=== PATIENT | female | born 1965 | race Caucasian/White ===

== ENCOUNTER 2021-03-01 10:52 | Emergency (ER) | payer OTHER ==
--- OUTSIDE RECORDS SUMMARY | 2021-03-01 10:55 | XMS REPORT | Continuity of Care Document ---
:1965 Author Organization [facility] t Address [facility] [address] [place] [address] Care Team Providers Name Role Phone Shield Attending Clinician Unavailable Shield Admitting Clinician Unavailable Payers Payer Name Policy Type Policy Number Effective Date Expiration Date S in[place] [employer] [id number] () Problems Condition Condition Condition Status Onset Resolution Last Treating Co mments Source Name Details Category Date Date Treatment Clinician Date Insomnia Insomnia Problem Active [facility] disorder Disorder 11-04 da related to Related to 00:00: Me dical another Another 00 Group mental Mental disorder Disorder Anxiety Anxiety Problem Active [facility] 11-04 da 00:00: Medical 00 Group Persistent Persistent Problem Active M [facility] insomnia Insomnia 11-04 da 00:00: Medical 00 Group 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 Med[facility] l [facility] Low back Low Back Problem Active [facility] pain [facility] Influenza Influenza Problem Active [facility] with with da respirator Respirator Me dical y y Group manifestat Manifestat ion other ion Other than than pneumonia Pneumonia Allergies, Adverse Reactions, Alerts Allergy Allergy Status Severity Reaction(s) Onset Inactive Treating Comm ents Source Name Type Date Date Clinician Neuronti Allergy Active Nausea [facility] to [facility] PENICILL Allergy Active [facility] INS to da [facility] Social History Smoking Status Start Date Stop Date Source Never Smoker [facility] Medications Ordered Filled Start Stop Current Ordering Indication Dosage Frequency Signature Comments Components Source Medication Medication Date Date Medication? Clinician (SIG) Name Name clonazepam clonazepam No 1 BID clonazepam [facility] 0.5 mg 0.5 mg 0.5 mg da tablet Take tablet Take tablet Medical 1 tablet 1 tablet Take 1 Group twice a day twice a day tablet by oral by oral twice a route as route as day by needed. needed. oral route as needed. Cymbalta 30 Cymbalta 30 No 1capsul Q1D Cymbalta [facility] mg mg e(s) 30 mg da capsule,del capsule,del capsule,de Medical ayed ayed layed Group release release release Take 1 Take 1 Take 1 capsule capsule capsule every day every day every day by oral by oral by oral route for route for route for 14 days. 14 days. 14 days. Cymbalta 60 Cymbalta 60 No 1capsul Q1D Cymbalta [facility] mg mg e(s) 60 mg da capsule,del capsule,del capsule,de Medical ayed ayed layed Group release release release Take 1 Take 1 Take 1 capsule capsule capsule every day every day every day by oral by oral by oral route. route. route. quetiapine quetiapine No 1 Q1D quetiapine [facility] 50 mg 50 mg 50 mg da tablet Take tablet Take tablet Medical 1 tablet 1 tablet Take 1 Group every day every day tablet by oral by oral every day route at route at by oral bedtime for bedtime for route at 10 days. 10 days. bedtime for 10 days. Immunizations Ordered Immunization Filled Immunization Date Status Commen ts Source Name Name Tdap Tdap 2006-04-16 Completed [facility] Vital Signs Vital Name Observation Time Observation Value Comments Source BP Diastolic 2020-11-11 00:00:00 73 mm[Hg] [facility] Height 2020-11-11 00:00:00 64 [in_i] [facility] BMI (Body Mass 2020-11-11 00:00:00 20.6 kg/m2 [facility]) Group BP Systolic 2020-11-11 00:00:00 117 [facility]Hg[facility] Body Weight 2020-11-11 00:00:00 1920 [oz_av] [facility] BMI (Body Mass 2020-11-04 00:00:00 20.9 kg/m2 [facility]) Group BP Systolic 2020-11-04 00:00:00 121 mm[Hg] [facility] Body Weight 2020-11-04 00:00:00 1952 [oz_av] [facility] BP Diastolic 2020-11-04 00:00:00 73 mm[Hg] [facility] Height 2020-11-04 00:00:00 64 [in_i] [facility] BP Diastolic 2020-11-03 00:00:00 78 mm[Hg] [facility] Height 2020-11-03 00:00:00 64 [in_i] [facility] BMI (Body Mass 2020-11-03 00:00:00 [facility] BP Systolic 2020-11-03 00:00:00 135 mm[Hg] [facility] Body Weight 2020-11-03 00:00:00 1955.2 [oz_av] [facility] BP Diastolic 2020-11-02 00:00:00 71 mm[Hg] [facility] Height 2020-11-02 00:00:00 64 [in_i] [facility] BMI (Body Mass 2020-11-02 00:00:00 21.1 kg/m2 [facility] Index) Group BP Systolic 2020-11-02 00:00:00 110 mm[Hg] [facility] Body Weight 2020-11-02 00:00:00 1969 [oz_av] [facility] BP Diastolic 2020-10-25 00:00:00 68 mm[Hg] [facility] Height 2020-10-25 00:00:00 64 [in_i] [facility] BMI (Body Mass 2020-10-25 00:00:00 21.3 kg/m2 [facility] Index) Group BP Systolic 2020-10-25 00:00:00 100 mm[Hg] [facility] Body Weight 2020-10-25 00:00:00 1984 [oz_av] [facility] Height 2020-09-28 00:00:00 64 [in_i] [facility] BMI (Body Mass 2020-09-28 00:00:00 21.5 [facility]2 [facility] BP Systolic 2020-09-28 00:00:00 111 mm[Hg] [facility] Body Weight 2020-09-28 00:00:00 1999 [oz_av] [facility] BP Diastolic 2020-09-28 00:00:00 70 mm[Hg] [facility] BP Diastolic 2020-09-27 00:00:00 77 mm[Hg] [facility] Height 2020-09-27 00:00:00 64 [in_i] [facility] BMI (Body Mass 2020-09-27 00:00:00 21.5 kg/m2 [facility] Index) Group BP Systolic 2020-09-27 00:00:00 131 mm[Hg] [facility] Body Weight 2020-09-27 00:00:00 2000 [oz_av] [facility] BP Diastolic 2020-02-05 00:00:00 69 mm[Hg] [facility] Height 2020-02-05 00:00:00 64 [in_i] [facility] BMI (Body Mass 2020-02-05 00:00:00 23.2 kg/m2 [facility] Index) Group BP Systolic 2020-02-05 00:00:00 127 mm[Hg] [facility] Body Weight 2020-02-05 00:00:00 2162 [oz_av] [facility] Procedures Procedure Date / Time Performed Performing Clinician [facility] e unlisted imaging order 2020-09-27 00:00:00 [facility] MAMMO, screening, 2020-02-05 00:00:00 [facility], bilateral [facility] unlisted [facility] 2020-02[facility]05 [facility] Encounters Start End Encounter Admission Attending Care Care Encounter Source Date/Time Date/Time Type Type Clinicians Facility Department ID 2021-03-01 Out[facility] 01:20:43 [facility] 2021-03-01 Out[facility] 00:41:48 [facility] 2021-02-28 Outpatient [facility] [id number] [facility] 23:10:29 726 Medical Group 2021-02-28 Outpatient [facility] MMG [id number] [facility] 21:26:44 722 [facility] Group 2021-02-28 Outpatient [facility] MMG [id number] [facility] 20:58:42 721 Medical Group 2021-02-28 Outpatient [facility] MMG [id number] [facility] 20:09:33 720 Medical Group 2021-02-28 Outpatient [facility] MMG [id number] [facility] 19:43:05 719 Medical Group 2021-02-28 Outpatient [facility] MMG [id number] [facility] 15:47:27 712 Medical Group 2021-02-28 Outpatient [facility]G MMG [id number] [facility] 15:12:58 710 Medical Group 2021-02-28 Outpatient [facility] MMG [id number] [facility] 09:31:03 629 Medical Group 2021-02-28 Outpatient [facility]G MMG [id number] [facility] 04:09:24 616 Medical Group 2021-02-28 Outpatient [facility]G MMG [id number] [facility] 03:30:37 615 Medical Group 2021-02-28 Outpatient Shield [facility]G MMG [id number] [facility] 03:08:10 614 Medical Group 2021-02-28 Outpatient [facility]G MMG [id number] [facility] 02:09:14 611 Medical [facility] 2020-11-11 2020-11-11 Gerber [place] - [id number] M at[facility] 00:00:00 00:00:00 MD Bill: [address] - [address] [place] [address] [place] [address] , Ph. 2020-11-04 2020-11-04 Gerber [place] - [id number] M [facility] 00:00:00 00:00:00 MD Bill: [address] [place] [address] [place] [address] , Ph. 2020-11-03 2020-11-03 Ciara HURTG [place] - [id number] M [facility] 00:00:00 00:00:00 Christina Mas [facility] Yuan MERCHANDISE COMPLAINT ADJUSTER: [address] [place] [address], [place] [address] , Ph. 2020-11-02 2020-11-02 Lety HURTG [place] - [id number] M [facility] 00:00:00 00:00:00 Discovery urszula Lomas MERCHANDISE COMPLAINT ADJUSTER: [address] [place] [address], [place] [address] , Ph. 2020-10-25 2020-10-25 Lety HURTG [place] - [id number] M [facility] 00:00:00 00:00:00 Discovery urszula Lomas MERCHANDISE COMPLAINT ADJUSTER: [address] [place] [address], [place] [address] , Ph. 2020-09-28 2020-09-28 Lety MMG [place] - [id number] M [facility] 00:00:00 00:00:00 Discovery urszula Lomas MERCHANDISE COMPLAINT ADJUSTER: [address] [place] [address], [place] [address] , Ph. 2020-09-27 2020-09-27 Lety MMG [place] - [id number] M [facility] 00:00:00 00:00:00 Discovery urszula Lomas MERCHANDISE COMPLAINT ADJUSTER: [address] [place] [address], [place] [address] , Ph. 2020-02-05 2020-02-05 Lety MMG [place] - [id number] M [facility] 00:00:00 00:00:00 Discovery urszula Lomas MERCHANDISE COMPLAINT ADJUSTER: [address] [place] [address] [place] [address] , Ph. Results Test Description Test Time Test Comments Results Result Comments Source Follitropin [Units/volume] in Serum or Plasma 2020-11-04 00: 00:00 Test Item Value Reference Range Interpretation Comme nts follicle stimulating 11.4 mIU/mL See_Comment [Autom ated message] The system hormone (test code = which g enerated this result follicle stimulating transmi tted reference range: .. hormone) The reference r radha was not used to interpret th is result as normal/abnormal . [facility] Serum or [id number] 00:00:00 Test Item Value Reference Range Interpretation Comments luteinizing hormone 15.2 mIU/mL See_Comment [Automa todd message] (test code = The system whic h luteinizing hormone) generat ed this result transmitted ref erence range: .. The reference range was not used to int erpret this result as normal/abnormal . [facility]Mass/volume] in Serum or [id number] 00:00:00 Test Item Value Reference Range Interpretation Comments Prolactin [Mass/volume] in Serum 12.9 NG/mL 4.8-23.3 or Plasma (test code = 2842-3) [facility] - Serum or Plasma 2020-11-02 11:33:00 Test Item Value Reference Range Interpretation Comments glucose (test code = glucose) 100 mg/dL 74-106 Urea nitrogen [Mass/volume] in 13 mg/dL 6-20 Serum or Plasma (test code = 3094-0) osmolality calculated,serum (test 278 mOsm/kg 280-300 L code = osmolality calculated,serum) creatinine (test code = 0.8 mg/dL 0.50-0.90 creatinine) glomerular filtration rate (test >60.00 code = glomerular filtration rate) Urea nitrogen/Creatinine [Mass 16.3 12-20 Ratio] in Serum or Plasma (test code = 3097-3) sodium level (test code = sodium 139 mmol/L 135-145 level) Potassium [Moles/volume] in Body 4.9 mmol/L 3.5-5.2 fluid (test code = 2821-7) chloride level (test code = 102 mmol/L 98-108 chloride level) CO2 (test code = CO2) 29 mmol/L 21-32 anion gap (test code = anion gap) 12.9 mEq/L 12-20 calcium level (test code = 9.7 mg/dL 8.6-10.0 calcium level) total protein (test code = total 6.9 g/dL 6.6-8.7 protein) albumin (test code = albumin) 4.6 g/dL 3.5-5.2 globulin (test code = globulin) 2.3 gm/dL A/G ratio (test code = A/G ratio) 2.0 >1.0 bilirubin,total (test code = 0.4 mg/dL 0.0-1.2 bilirubin,total) AST/SGOT (test code = AST/SGOT) 17 U/L 15-32 Alanine aminotransferase 12 U/L 0-33 [Enzymatic activity/volume] in Serum or Plasma (test code = 1742-6) Alkaline phosphatase [Enzymatic 53 U/L 35-105 activity/volume] in Serum or Plasma (test code = 6768-6) [facility] - Serum or Plasma 2020-11-02 11:33:00 Test Item Value Reference Range Interpretation Comments glucose (test code = glucose) 100 mg/dL 74-106 Urea nitrogen [Mass/volume] in 13 mg/dL 6-20 Serum or Plasma (test code = 3094-0) osmolality calculated,serum (test 278 mOsm/kg 280-300 L code = osmolality calculated,serum) creatinine (test code = 0.8 mg/dL 0.50-0.90 creatinine) glomerular filtration rate (test >60.00 code = glomerular filtration rate) Urea nitrogen/Creatinine [Mass 16.3 12-20 Ratio] in Serum or Plasma (test code = 3097-3) sodium level (test code = sodium 139 mmol/L 135-145 level) Potassium [Moles/volume] in Body 4.9 mmol/L 3.5-5.2 fluid (test code = 2821-7) chloride level (test code = 102 mmol/L 98-108 chloride level) CO2 (test code = CO2) 29 mmol/L 21-32 anion gap (test code = anion gap) 12.9 mEq/L 12-20 calcium level (test code = 9.7 mg/dL 8.6-10.0 calcium level) total protein (test code = total 6.9 g/dL 6.6-8.7 protein) albumin (test code = albumin) 4.6 g/dL 3.5-5.2 globulin (test code = globulin) 2.3 gm/dL A/G ratio (test code = A/G ratio) 2.0 >1.0 bilirubin,total (test code = 0.4 mg/dL 0.0-1.2 bilirubin,total) AST/SGOT (test code = AST/SGOT) 17 U/L 15-32 Alanine aminotransferase 12 U/L 0-33 [Enzymatic activity/volume] in Serum or Plasma (test code = 1742-6) Alkaline phosphatase [Enzymatic 53 U/L 35-105 activity/volume] in Serum or Plasma (test code = 6768-6) [facility] - Serum or Plasma 2020-11-02 11:33:00 Test Item Value Reference Range Interpretation Comments glucose (test code = glucose) 100 mg/dL 74-106 Urea nitrogen [Mass/volume] in 13 mg/dL 6-20 Serum or Plasma (test code = 3094-0) osmolality calculated,serum (test 278 mOsm/kg 280-300 L code = osmolality calculated,serum) creatinine (test code = 0.8 mg/dL 0.50-0.90 creatinine) glomerular filtration rate (test >60.00 code = glomerular filtration rate) Urea nitrogen/Creatinine [Mass 16.3 12-20 Ratio] in Serum or Plasma (test code = 3097-3) sodium level (test code = sodium 139 mmol/L 135-145 level) Potassium [Moles/volume] in Body 4.9 mmol/L 3.5-5.2 fluid (test code = 2821-7) chloride level (test code = 102 mmol/L 98-108 chloride level) CO2 (test code = CO2) 29 mmol/L 21-32 anion gap (test code = anion gap) 12.9 mEq/L 12-20 calcium level (test code = 9.7 mg/dL 8.6-10.0 calcium level) total protein (test code = total 6.9 g/dL 6.6-8.7 protein) albumin (test code = albumin) 4.6 g/dL 3.5-5.2 globulin (test code = globulin) 2.3 gm/dL A/G ratio (test code = A/G ratio) 2.0 >1.0 bilirubin,total (test code = 0.4 mg/dL 0.0-1.2 bilirubin,total) AST/SGOT (test code = AST/SGOT) 17 U/L 15-32 Alanine aminotransferase 12 U/L 0-33 [Enzymatic activity/volume] in Serum or Plasma (test code = 1742-6) Alkaline phosphatase [Enzymatic 53 U/L 35-105 activity/volume] in Serum or Plasma (test code = 6768-6) [facility] W Auto Differential panel - [id number] 00:00:00 Test Item Value Reference Range Interpretation Comments white blood count (test code = 7.9 K/uL 4.0-11.5 white blood count) red blood count (test code = red 4.21 M/uL 3.80-5.20 blood count) hemoglobin (test code = 13.3 g/dL 10.5-15.7 hemoglobin) hematocrit (test code = 40.1 % 34.0-50.0 hematocrit) MCV [Entitic volume] (test code = 95.2 fL 86-100 84273-1) mean corpuscular hemoglobin (test 31.6 pg 26.2-33.4 code = mean corpuscular hemoglobin) mean corpuscular HGB conc (test 33.2 g/dL 30-34 code = mean corpuscular HGB conc) red cell distribution width (test 13.2 % 12.0-15.5 code = red cell distribution width) platelet count (test code = 287 K/uL 165-450 platelet count) mean platelet volume (test code = 10.8 fL 9.4-12.6 mean platelet volume) Segmented neutrophils/100 71.5 % 44.4-80.1 leukocytes in Blood (test code = 24321-7) Immature granulocytes [#/volume] 0.0 K/uL 0.0-0.03 in Blood (test code = 17920-8) lymphocyte% (test code = 19.5 % 10.0-50.0 lymphocyte%) mono % (test code = mono %) 5.7 % 3.6-12.0 eos % (test code = eos %) 2.4 % 0.0-5.4 Basophils/100 leukocytes in 0.5 % 0.1-1.2 Unspecified specimen (test code = 31196-3) Band form neutrophils [#/volume] 5.65 K/uL 1.56-6.13 in Blood (test code = 98016-6) Lymphocytes [#/volume] in 1.5 K/uL 1.18-3.74 Unspecified specimen by Automated count (test code = 76452-0) mono # (test code = mono #) 0.45 K/uL 0.24-0.86 eos # (test code = eos #) 0.19 K/uL 0.04-0.36 basophil # (test code = basophil 0.04 K/uL 0.01-0.08 #) NRBC% (test code = NRBC%) 0 /100 WBC 0-0.2 NRBC# (test code = NRBC#) 0 K/uL [facility], method unspecified - [id number] 00:00:00NeutrophilsBandLymphocyteAtypical LymphMonocyteEosinophilBasophilMetamyelocyteMyelocytePromyelocyteBlastsNucleated Red Blood CellAbs Neutrophil Count (Man)Abs Lymph Count (Man)Abs Monocyte Count (Man)Abs Eosinophil Count (Man)Abs Basophil Count (Man)Platelet EstimatePlatelet MorphologyPoikilocytosisAnisocytosisMacrocytosisToxic GranulationCoving[facility] HospitalThyrotropin [Units/volume] in Serum or Plasma 2020-11-02 00:00:00 Test Item Value Reference Range Interpretation Comments Thyrotropin [Units/volume] in 1.00 uIU/mL 0.36-3.74 Serum or Plasma (test code = 3016-3) [facility] W Auto Differential panel - [id number] 00:00:00 Test Item Value Reference Range Interpretation Comments white blood count (test code = 7.9 K/uL 4.0-11.5 white blood count) red blood count (test code = red 4.21 M/uL 3.80-5.20 blood count) hemoglobin (test code = 13.3 g/dL 10.5-15.7 hemoglobin) hematocrit (test code = 40.1 % 34.0-50.0 hematocrit) MCV [Entitic volume] (test code = 95.2 fL 86-100 44085-3) mean corpuscular hemoglobin (test 31.6 pg 26.2-33.4 code = mean corpuscular hemoglobin) mean corpuscular HGB conc (test 33.2 g/dL 30-34 code = mean corpuscular HGB conc) red cell distribution width (test 13.2 % 12.0-15.5 code = red cell distribution width) platelet count (test code = 287 K/uL 165-450 platelet count) mean platelet volume (test code = 10.8 fL 9.4-12.6 mean platelet volume) Segmented neutrophils/100 71.5 % 44.4-80.1 leukocytes in Blood (test code = 88064-8) Immature granulocytes [#/volume] 0.0 K/uL 0.0-0.03 in Blood (test code = 59350-8) lymphocyte% (test code = 19.5 % 10.0-50.0 lymphocyte%) mono % (test code = mono %) 5.7 % 3.6-12.0 eos % (test code = eos %) 2.4 % 0.0-5.4 Basophils/100 leukocytes in 0.5 % 0.1-1.2 Unspecified specimen (test code = 69048-4) Band form neutrophils [#/volume] 5.65 K/uL 1.56-6.13 in Blood (test code = 02817-5) Lymphocytes [#/volume] in 1.5 K/uL 1.18-3.74 Unspecified specimen by Automated count (test code = 89311-2) mono # (test code = mono #) 0.45 K/uL 0.24-0.86 eos # (test code = eos #) 0.19 K/uL 0.04-0.36 basophil # (test code = basophil 0.04 K/uL 0.01-0.08 #) NRBC% (test code = NRBC%) 0 /100 WBC 0-0.2 NRBC# (test code = NRBC#) 0 K/uL [facility], method unspecified - [id number] 00:00:00NeutrophilsBandLymphocyteAtypical LymphMonocyteEosinophilBasophilMetamyelocyteMyelocytePromyelocyteBlastsNucleated Red Blood CellAbs Neutrophil Count (Man)Abs Lymph Count (Man)Abs Monocyte Count (Man)Abs Eosinophil Count (Man)Abs Basophil Count (Man)Platelet EstimatePlatelet MorphologyPoikilocytosisAnisocytosisMacrocytosisToxic GranulationC[facility] HospitalThyrotropin [Units/volume] in Serum or Plasma 2020-11-02 00:00:00 Test Item Value Reference Range Interpretation Comments Thyrotropin [Units/volume] in 1.00 uIU/mL 0.36-3.74 Serum or Plasma (test code = 3016-3) [facility] W Auto Differential panel - [id number] 00:00:00 Test Item Value Reference Range Interpretation Comments white blood count (test code = 7.9 K/uL 4.0-11.5 white blood count) red blood count (test code = red 4.21 M/uL 3.80-5.20 blood count) hemoglobin (test code = 13.3 g/dL 10.5-15.7 hemoglobin) hematocrit (test code = 40.1 % 34.0-50.0 hematocrit) MCV [Entitic volume] (test code = 95.2 fL 86-100 92177-4) mean corpuscular hemoglobin (test 31.6 pg 26.2-33.4 code = mean corpuscular hemoglobin) mean corpuscular HGB conc (test 33.2 g/dL 30-34 code = mean corpuscular HGB conc) red cell distribution width (test 13.2 % 12.0-15.5 code = red cell distribution width) platelet count (test code = 287 K/uL 165-450 platelet count) mean platelet volume (test code = 10.8 fL 9.4-12.6 mean platelet volume) Segmented neutrophils/100 71.5 % 44.4-80.1 leukocytes in Blood (test code = 27565-0) Immature granulocytes [#/volume] 0.0 K/uL 0.0-0.03 in Blood (test code = 53311-0) lymphocyte% (test code = 19.5 % 10.0-50.0 lymphocyte%) mono % (test code = mono %) 5.7 % 3.6-12.0 eos % (test code = eos %) 2.4 % 0.0-5.4 Basophils/100 leukocytes in 0.5 % 0.1-1.2 Unspecified specimen (test code = 33465-0) Band form neutrophils [#/volume] 5.65 K/uL 1.56-6.13 in Blood (test code = 59840-2) Lymphocytes [#/volume] in 1.5 K/uL 1.18-3.74 Unspecified specimen by Automated count (test code = 08856-3) mono # (test code = mono #) 0.45 K/uL 0.24-0.86 eos # (test code = eos #) 0.19 K/uL 0.04-0.36 basophil # (test code = basophil 0.04 K/uL 0.01-0.08 #) NRBC% (test code = NRBC%) 0 /100 WBC 0-0.2 NRBC# (test code = NRBC#) 0 K/uL [facility], method unspecified - [id number] 00:00:00NeutrophilsBandLymphocyteAtypical LymphMonocyteEosinophilBasophilMetamyelocyteMyelocytePromyelocyteBlastsNucleated Red Blood CellAbs Neutrophil Count (Man)Abs Lymph Count (Man)Abs Monocyte Count (Man)Abs Eosinophil Count (Man)Abs Basophil Count (Man)Platelet EstimatePlatelet MorphologyPoikilocytosisAnisocytosisMacrocytosisToxic GranulationMatagoMer[facility] Health WesleyThyrotropin [Units/volume] in Serum or Plasma 2020-11-02 00:00:00 Test Item Value Reference Range Interpretation Comments Thyrotropin [Units/volume] in 1.00 uIU/mL 0.36-3.74 Serum or Plasma (test code = 3016-3) [facility]* 2020-10-25 00:00:00 Test Item Value Reference Range Interpretation Comments PHQ 9 (test code = PHQ 9) Score >/= 5 [facility]* 2020-10-25 00:00:00 Test Item Value Reference Range Interpretation Comments PHQ 9 (test code = PHQ 9) Score >/= 5 [facility] 2020-10-25 00:00:00 Test Item Value Reference Range Interpretation Comments PHQ 9 (test code = PHQ 9) Score >/= 5 [facility]* 2020-10-25 00:00:00 Test Item Value Reference Range Interpretation Comments PHQ 9 (test code = PHQ 9) Score >/= 5 [facility] SARS CoV + SARS CoV 2 Ag, QL IA, respiratory [id number] 13:23:00 Test Item Value Reference Range Interpretation Comments SARS-CoV - 2 (test code = SARS-CoV - negative 2) [facility]
--- NOTE | 2021-03-01 11:57 | EDPHYS ---
Physician Documentation [facility] Name: Rayne Bunn Age: 56 yrs Sex: Female : 1965 Arrival Date: 03/01/2021 Time: 10:55 Bed 5 Private MD: ED Physician Taz Hanley HPI: 03/01 11:58 This 56 yrs old Female presents to ER via Ambulatory with complaints of jr8 Anxiety. 11:58 This is a 56-year-old female patient that presented to the emergency room with jr8 uncontrolled anxiety and depression. Patient stated that she has had this for the past several months. Has not had 1 particular trigger but has been a compilation of general problems. Patient stated that it is to the point where she has had ideations in the past but has never acted upon it. Has been trying to medicate with Ambien at nighttime to get a good night sleep but continues to have problems. Has talked to her PCP in the past about this and had referred her to therapy but has not been started on any medications otherwise and she feels that the therapy she has been getting has not been enough. She did admit to not fully alluding to the fact that her depression is driving most of how she is feeling at this time.. Historical: - Allergies: 11:09 PENICILLINS; ll1 - PMHx: 11:09 anxiety/depression; ll1 - PSHx: 11:09 jaw SX; ll1 - Immunization history:: Client reports having NOT received the Covid vaccine. Flu vaccine status is unknown. - Social history:: Smoking status: Patient denies any tobacco usage or history of. ROS: 11:58 Eyes: Negative for injury, pain, redness, and discharge, ENT: Negative for injury, jr8 pain, and discharge, Neck: Negative for injury, pain, and swelling, Cardiovascular: Negative for chest pain, palpitations, and edema, Respiratory: Negative for shortness of breath, cough, wheezing, and pleuritic chest pain, Abdomen/GI: Negative for abdominal pain, nausea, vomiting, diarrhea, and constipation, Back: Negative for injury and pain, MS/Extremity: Negative for injury and deformity, Skin: Negative for injury, rash, and discoloration, Neuro: Negative for headache, weakness, numbness, tingling, and seizure. 11:58 Psych: Positive for anxiety, depression. Exam: 11:58 Cardiovascular: Regular rate and rhythm with a normal S1 and S2. No gallops, murmurs, jr8 or rubs. Normal PMI, no JVD. No pulse deficits. Respiratory: Lungs have equal breath sounds bilaterally, clear to auscultation and percussion. No rales, rhonchi or wheezes noted. No increased work of breathing, no retractions or nasal flaring. Abdomen/GI: Soft, non-tender, with normal bowel sounds. No distension or tympany. No guarding or rebound. No evidence of tenderness throughout. Skin: Warm, dry with normal turgor. Normal color with no rashes, no lesions, and no evidence of cellulitis. MS/ Extremity: Pulses equal, no cyanosis. Neurovascular intact. Full, normal range of motion. Neuro: Awake and alert, GCS 15, oriented to person, place, time, and situation. Cranial nerves II-XII grossly intact. Motor strength 5/5 in all extremities. Sensory grossly intact. Cerebellar exam normal. Normal gait. 11:58 Constitutional: The patient appears alert, awake, anxious. 11:58 Psych: Behavior/mood is anxious, depressed, Affect is flat, Oriented to person, place, time, Patient has no thoughts/intents to harm self or others. Judgement / Insight is normal. Memory is normal. Delusions/hallucinations are not present. Vital Signs: 11:10 BP 158 / 81; Pulse 87; Resp 18; Temp 98.0; Pulse Ox 100% ; Weight 56.7 kg; Height 5 ft. ll1 4 in. (162.56 cm); Pain 9/10; 12:51 BP 132 / 74; Pulse 90; Resp 19; Temp 98.4; Pulse Ox 99% on R/A; Pain 0/10; kd3 11:10 Body Mass Index 21.46 (56.70 kg, 162.56 cm) ll1 MDM: 11:17 Patient medically screened. jr8 11:53 Data reviewed: vital signs, nurses notes, and as a result, I will discharge patient. jr8 Data interpreted: Pulse oximetry: on room air is 100 %. Interpretation: normal. Counseling: I had a detailed discussion with the patient and/or guardian regarding: the historical points, exam findings, and any diagnostic results supporting the discharge/admit diagnosis, the need for outpatient follow up, a family practitioner, a psychiatrist, to return to the emergency department if symptoms worsen or persist or if there are any questions or concerns that arise at home. ED course: Detailed discussion with patient that she does have significant anxiety and depression. That she needs to follow-up with her primary care and will also refer to psychiatry at this point. Patient has significant enough symptoms where I feel like she needs to have more immediate medical therapy despite her not having current suicidal ideations. Patient has had previous recent ideations. Patient understands this and knows that she needs to follow-up. Have is also discussed this with her son that is in the room with her. He will ensure that patient follows up with primary care and psychiatry in which I will refer to.. Administered Medications: 12:50 Drug: Ativan (LORazepam) 1 mg Route: PO; kd3 13:02 Follow up: Response: Anxiety decreased kd3 Disposition: 16:45 Co-signature as Attending Physician, Taz Hanley MD I agree with the assessment and rn plan of care. Disposition Summary: 03/01/21 11:57 Discharge Ordered Location: Home jr Problem: new jr8 Symptoms: have improved jr8 Condition: Stable jr8 Diagnosis - Anxiety disorder, unspecified jr8 - Major depressive disorder, recurrent, unspecified jr8 Followup: jr8 - With: Herberth Weir MD - When: 2 - 3 days - Reason: Recheck today's complaints, Continuance of care, Re-evaluation by your physician Discharge Instructions: - Discharge Summary Sheet jr8 - Panic Attack jr8 - Generalized Anxiety Disorder, Adult jr8 - Major Depressive Disorder, Adult jr8 Forms: - Medication Reconciliation Form jr8 - Thank You Letter jr8 - Antibiotic Education jr8 - Prescription Opioid Use jr8 Prescriptions: - Lexapro 10 mg Oral tablet - take 1 tablet by ORAL route once daily; 30 tablet; Refills: 0, Product jr8 Selection Permitted - Restoril 15 mg Oral capsule - take 1 capsule by ORAL route once daily at bedtime as needed; 20 capsule; jr8 Refills: 0, Product Selection Permitted - Hydroxyzine HCl 50 mg Oral Tablet - take 1 tablet by ORAL route 1-2 times daily As needed; 20 tablet; Refills: 0, jr8 Product Selection Permitted Signatures: Taz Hanley MD MD rn Roszak, Josh, PA PA jr8 Francisco Flores, RN RN ll1 Malissa Jean kd3 Corrections: (The following items were deleted from the chart) 11:10 11:09 Allergies: depression/anxiety; 1 1
--- NOTE | 2021-03-01 11:57 | ER ---
Nurse's Notes [facility] Name: Rayne Bunn Age: 56 yrs Sex: Female : 1965 Arrival Date: 03/01/2021 Time: 10:55 Bed 5 Private MD: Diagnosis: Anxiety disorder, unspecified;Major depressive disorder, recurrent, unspecified Presentation: 03/01 11:10 Chief complaint: Patient states: Not sleeping well with a lot of anxiety for 6-7 ll1 months. Has tried many sleeping aids, no relief. No SI or HI. + headache. Coronavirus screen: Vaccine status: Patient reports being unvaccinated. Client denies travel out of the [place] in the last 14 days. At this time, the client does not indicate any symptoms associated with coronavirus-19. Ebola Screen: Patient denies travel to an Ebola-affected area in the 21 days before illness onset. Initial Sepsis Screen: Does the patient meet any 2 criteria? No. Patient's initial sepsis screen is negative. Does the patient have a suspected source of infection? No. Patient's initial sepsis screen is negative. Risk Assessment: Do you want to hurt yourself or someone else? Patient reports no desire to harm self or others. Onset of symptoms was July 15, 2020. 11:10 Method Of Arrival: Ambulatory ll1 11:10 Acuity: STEWART 3 ll1 Triage Assessment: 12:36 General: Appears in no apparent distress. Behavior is cooperative, anxious, restless. kd3 Pain: Denies pain. Historical: - Allergies: 11:09 PENICILLINS; ll1 - PMHx: 11:09 anxiety/depression; ll1 - PSHx: 11:09 jaw SX; ll1 - Immunization history:: Client reports having NOT received the Covid vaccine. Flu vaccine status is unknown. - Social history:: Smoking status: Patient denies any tobacco usage or history of. Screenin:34 Abuse screen: Denies threats or abuse. Denies injuries from another. Nutritional kd3 screening: No deficits noted. Tuberculosis screening: No symptoms or risk factors identified. Fall Risk None identified. Assessment: 12:34 Pain: Denies pain. kd3 12:36 General: Behavior is anxious, restless. kd3 12:38 Reassessment: PT describes feeling anxious and being unable to sleep despite being on kd3 Ambien for 7 months. PT states that she has had past suicide attempt in the past by overdosing on Clonazepam and she didn't want to be put on any medications similar to this. pt is restless on the stretcher. pt is difficult to get information from due to anxiety. Neuro: No deficits noted. Oriented to person, place, time, situation. Cardiovascular: No deficits noted. Patient's skin is warm and dry. Respiratory: No deficits noted. Airway is patent. 13:00 Reassessment: PT D/C HOME AMBULATORY WITH FAMILY, DX WITH ANXIETY. kd3 Vital Signs: 11:10 BP 158 / 81; Pulse 87; Resp 18; Temp 98.0; Pulse Ox 100% ; Weight 56.7 kg; Height 5 ft. ll1 4 in. (162.56 cm); Pain 9/10; 12:51 BP 132 / 74; Pulse 90; Resp 19; Temp 98.4; Pulse Ox 99% on R/A; Pain 0/10; kd3 11:10 Body Mass Index 21.46 (56.70 kg, 162.56 cm) ll1 ED Course: 10:55 Patient arrived in ED. mr 11:09 Arm band placed on. ll1 11:12 Triage completed. ll1 11:17 Akil Pedersen PA is PHCP. jr8 11:17 Taz Hanley MD is Attending Physician. jr8 11:29 Bhupendra Patel, MIGUELITO is Primary Nurse. bp 11:55 Herberth Weir MD is Referral Physician. jr8 12:34 Patient has correct armband on for positive identification. Bed in low position. Call kd3 light in reach. Side rails up X2. 13:00 No provider procedures requiring assistance completed. Patient did not have IV access kd3 during this emergency room visit. Administered Medications: 12:50 Drug: Ativan (LORazepam) 1 mg Route: PO; kd3 13:02 Follow up: Response: Anxiety decreased kd3 Outcome: 11:57 Discharge ordered by . jr8 13:00 Discharged to home ambulatory, with family. kd3 13:00 Condition: stable 13:00 Discharge instructions given to patient, Instructed on discharge instructions, follow up and referral plans. medication usage, Demonstrated understanding of instructions, follow-up care, medications, Prescriptions given X 3. 13:03 Patient left the ED. kd3 Signatures: Gwendolyn Schwartz mr SlavaAkil, SKYLER HOLLAND jr8 Bhupendra Patel RN RN Francisco Morelos RN RN ll1 Malissa Jean kd3 Corrections: (The following items were deleted from the chart) 11:10 11:09 Allergies: depression/anxiety; 1 1 11:25 11:10 Chief complaint: Patient states: Not sleeping well with a lot of anxiety for 6-7 ll1 months. Has triad many sleeping aids, no relief. No SI or HI. + headache. 1 13:02 13:00 Discharge instructions given to patient, Instructed on discharge instructions, kd3 follow up and referral plans. medication usage, Demonstrated understanding of instructions, follow-up care, medications, Prescriptions given X 1, kd3
[2021-03-01] MEDS ORDERED: LORAZEPAM 1 MG TABLET ONE (12:12)
[2021-03-01 13:10] VITALS: BP 132/74; TEMP 98.4; O2SAT 99
== END 2021-03-01 13:03 | disposition home or self-care (01) ==
LOC: ER 10:52
DX: F33.9 Major depressive disorder, recurrent, unspecified (principal); Z88.0 Allergy status to penicillin
CPT/HCPCS: 99283